=== PATIENT | male | born 1970 | race Caucasian/White ===

== ENCOUNTER 2019-02-24 05:43 | Emergency (ER) | payer OTHER ==
--- NOTE | 2019-02-24 06:57 | ERPHSYRPT ---
- History of Present Illness Source: patient Exam Limitations: no limitations Patient Subjective Stated Complaint: PT IS ALERT AND ORIENTED. PT COMES IN AFTER SMASHING HIS HAND BETWEEN TWO ROCKS WHILE AT WORK. 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 PT STATES THAT HE'S HAVING PAIN FROM HIS MIDDLE RIGHT FINGER TO HIS LITTLE FINGER AND HALF WAY DOWN HIS RIGHT HAND. PT IS UNABLE TO MAKE FIST BUT CAN MOVE HIS WRIST IN A FULL ROM. PT STATES HE'S HAVING NUMBNESS TO HIS MIDDLE AND RING FINGER. NO BRUISING NOTED. NO BLEEDING. NO REDNESS. VERY MILD SWELLING NOTED TO HAND. PT RADIAL PULSES ARE STRONG AND CAP REFIL IS <3. Triage Nursing Assessment: SEE ABOVE Occurred: just prior to arrival Method of Injury: direct blow Quality: constant, aching Severity of Pain-Max: moderate Severity of Pain-Current: moderate Extremities Pain Location: hand: right Modifying Factors: Improves With: movement Associated Symptoms: none Hx Tetanus, Diphtheria Vaccination/Date Given: Yes Immunizations Up to Date: Yes <WOODROW CARRERA - Last Filed: 02/24/19 06:52> <EDWARD BRUCE - Last Filed: 02/24/19 08:09> - History of Present Illness Time Seen by Provider: 02/24/19 06:20 Physician History: 48 y/o right handed white male presents to ED after smashing right hand between 2 boulders. occurred approx 1 hour vessel captain. initially, right hand very swollen. hurts and cannot make fist. (WOODROW CARRERA) Allergies/Adverse Reactions: Penicillins Allergy (Verified 02/24/19 06:08) - Review of Systems Constitutional: No Symptoms Eyes: No Symptoms Ears, Nose, & Throat: No Symptoms Respiratory: No Symptoms Cardiac: No Symptoms Abdominal/Gastrointestinal: No Symptoms Genitourinary Symptoms: No Symptoms Musculoskeletal: Injury (right hand) Skin: No Symptoms Neurological: No Symptoms Psychological: No Symptoms Endocrine: No Symptoms Hematologic/Lymphatic: No Symptoms Immunological/Allergic: No Symptoms All Other Systems: Reviewed and Negative <WOODROW CARRERA - Last Filed: 02/24/19 06:52> - Past Medical History Pertinent Past Medical History: No Neurological History: No Pertinent History ENT History: No Pertinent History Cardiac History: No Pertinent History Respiratory History: No Pertinent History Endocrine Medical History: No Pertinent History Musculoskeletal History: No Pertinent History GI Medical History: No Pertinent History History: No Pertinent History Psycho-Social History: No Pertinent History Male Reproductive Disorders: No Pertinent History - Past Surgical History Past Surgical History: Yes Neuro Surgical History: No Pertinent History Cardiac: No Pertinent History Respiratory: No Pertinent History Gastrointestinal: Appendectomy Genitourinary: No Pertinent History Musculoskeletal: No Pertinent History Male Surgical History: No Pertinent History - Social History Smoking Status: Current every day smoker How long have you smoked: 20 YEARS Drug Use: none <WOODROW CARRERA - Last Filed: 02/24/19 06:52> - Physical Exam General Appearance: no apparent distress, alert, anxiety Eyes, Ears, Nose, Throat Exam: normal ENT inspection, moist mucous membranes Neck Exam: normal inspection, non-tender, supple, full range of motion Cardiovascular/Respiratory Exam: chest non-tender, normal breath sounds, regular rate/rhythm Abdominal Exam: non-tender, No spleenomegaly Back Exam: normal inspection, normal range of motion, No vertebral tenderness Shoulder Exam: normal inspection, non-tender, no evidence of injury, normal ROM Elbow/Forearm Exam: normal inspection, non-tender, no evidence of injury, normal ROM Wrist Exam: normal inspection, non-tender, no evidence of injury, normal ROM Hand Exam: normal inspection, no evidence of injury, bone tenderness, limited ROM, soft tissue tenderness, stiffness Neuro/Tendon Exam: normal sensation, responds to pain, withdraws to pain Mental Status Exam: alert, oriented x 3, cooperative Skin Exam: normal color, warm, dry SpO2 Interpretation: normal SpO2: 98 O2 Delivery: Room Air <WOODROW CARRERA - Last Filed: 02/24/19 06:52> - Nursing Vital Signs Nursing Vital Signs: Initial Vital Signs Temperature 98.4 F 02/24/19 06:01 Pulse Rate 70 02/24/19 06:01 Respiratory Rate 18 02/24/19 06:01 Blood Pressure 117/73 02/24/19 06:01 O2 Sat by Pulse Oximetry 98 02/24/19 06:01 Pain Scale Pain Intensity 7 - Course Nursing assessment & vital signs reviewed: Yes - Radiology Exams Right Hand X-ray Interpretation: Teleradiologist Report (No bony, articular or soft tissue abnormalities.) <EDWARD BRUCE - Last Filed: 02/24/19 08:09> Ordered Tests: Active Orders 24 hr Category Date Time Status HAND (MINIMUM 3 VIEWS) Stat Exams 02/24/19 06:34 Completed Medication Summary Discontinued Medications Generic Name Dose Route Start Last Admin Trade Name Aisha PRN Reason Stop Dose Admin Oxycodone/Acetaminophen 1 tab 02/24/19 07:04 02/24/19 07:15 Percocet Tablet 5/325mg PO 02/24/19 07:05 1 tab STAT STA Administration Oxycodone/Acetaminophen Confirm 02/24/19 07:13 Percocet Tablet 5/325mg Administered 02/24/19 07:14 Dose 1 tab .ROUTE .STK-MED ONE <WOODROW CARRERA - Last Filed: 02/24/19 06:52> - Progress Progress: unchanged Will see patient in: office Counseled pt/family regarding: need for follow-up <EDWARD BRUCE - Last Filed: 02/24/19 08:09> - Progress Progress Note: 02/24/19 06:57 xray right hand-no acute fx or dislocation 02/24/19 06:58 i have transferred care to dr. bruce. (WOODROW CARRERA) <WOODROW CARRERA - Last Filed: 02/24/19 06:52> - Departure Departure Disposition: Home Critical Care Time: No <EDWARD BRUCE - Last Filed: 02/24/19 08:09> - Departure Clinical Impression: Hand crush injury Condition: Stable Additional Instructions: Keep hand elevated and iced. Use Ibuprofen as anti inflammatory. If swelling or pain increases, please come back to the ER. Forms: Work/School Release Form Prescriptions: Ibuprofen 800 mg PO Q8H PRN PRN 7 Days #20 tablet PRN Reason: Moderate Pain
[2019-02-24] MEDS ORDERED: PERCOCET TABLET 5/325MG PO STA (07:04)
[2019-02-24] MEDS ORDERED: PERCOCET TABLET 5/325MG ONE (07:13)
--- NOTE | 2019-02-24 07:54 | XRAY ---
Indication: Pain following crush injury. Comparison: None 3 views of the right hand obtained. No bony, articular, or soft tissue abnormalities.
[2019-02-24 08:29] VITALS: BP 104/57; PULSE 60; O2SAT 100
== END 2019-02-24 08:20 | disposition home or self-care (01) ==
LOC: ED 05:43
DX: S67.21XA Crushing injury of right hand, initial encounter (principal); M79.641 Pain in right hand; W22.8XXA Striking against or struck by other objects, initial encounter; Y93.89 Activity, other specified; Y92.69 Other specified industrial and construction area as the place of occurrence of the external cause; Y99.0 Civilian activity done for income or pay
CPT/HCPCS: 73130; 99284; A9270-GY